=== PATIENT | female | born 1980 | race Two or more races ===

== ENCOUNTER 2017-08-03 08:42 | Inpatient (IN) | payer OTHER ==
[~2017-08-03] VITALS: Ht 154.9 cm; Wt 64.5 kg
--- NOTE | 2017-08-03 08:56 | NUR ---
PT C/O ABD PAIN THAT RADIATES TO HER BACK BILATERALLY 10/10 AT THIS TIME. PT CLAIMS S/S STARTED YESTERDAY WITH N/V NO DIARRHEA OR FEVER. SEEN AT [facility] YESTERDAY AND LEFT WITHOUT ALL RESULTS. PAIN IS EPIGASTRIC AND TENDER TO PALP WITHOUT ANY PALP MASSES PRESENT. PT ARRIVES ALERT AND ORIENTED WITH VSS AND 0 S/S DISTRESS NOTED. AWAITING MD DESIR
--- NOTE | 2017-08-03 09:32 | NUR ---
DR MAC AT BEDSIDE FOR EVAL
[2017-08-03 09:40] LABS: BASOPHIL % 0.7 % (0-2); PLATELET COUNT 261 x10^3mcL (130-400); RED CELL DISTRIBUTION WIDTH 13.1 % (11.5-14.5)
[2017-08-03 09:47] LABS: CALCIUM 8.8 mg/dL (8.5-10.1); CARBON DIOXIDE 26.7 mmol/L (21-32); CHLORIDE SERUM 102 mmol/L (98-107); CREATININE SERUM 0.7 mg/dL (0.6-1.0); GFR1 > 60 mL/min; GLUCOSE SERUM 95 mg/dL (74-106); POTASSIUM SERUM 3.5 mmol/L (3.5-5.1); SODIUM SERUM 136 mmol/L (136-145)
[2017-08-03 09:52] LABS: ALBUMIN 3.9 g/dL (3.4-5.0); ALKALINE PHOSPHATASE 56 U/L (46-116); ALT/SGPT 21 U/L (14-59); AST/SGOT 18 U/L (15-37); BILIRUBIN TOTAL 0.5 mg/dL (0.20-1.00); LIPASE 126 IU/L (73-393); TOTAL PROTEIN, SERUM 7.7 g/dL (6.4-8.2)
--- NOTE | 2017-08-03 11:30 | NUR ---
PT TO BE ADMITTED. AWAITING BED AND AWARE. VSS AND 0 S/S DISTRESS NOTED
[2017-08-03] MEDS ORDERED: PRILOSEC OTC20 M1 PO (11:45)
--- NOTE | 2017-08-03 12:45 | NUR ---
report given to bette cartwright rn
--- NOTE | 2017-08-03 12:52 | NUR ---
o.r. called and pt to go to OR
--- NOTE | 2017-08-03 12:59 | NUR ---
PT LEFT FOR OR AT THIS TIME. VSS AND ALERT AND ORIENTED
[2017-08-03 13:30] LABS: CHOLESTEROL/HDL RATIO 3.5; MAGNESIUM 2.3 mg/dL (1.8-2.4); PHOSPHOROUS 3.2 mg/dL (2.5-4.9)
[2017-08-03 13:32] LABS: T3 TOTAL 1.14 ng/mL
[2017-08-03 13:55] LABS: FREE T4 1.3 ng/dL (0.76-1.46); FREE THYROXINE INDEX 3.9 ug/dL (1.4-4.5); T4(THYROXINE) 11.1 ug/dL (4.7-13.3)
[2017-08-03 16:00] VITALS: BP 108/67
[2017-08-03 16:43] VITALS: BP 108/67
--- NOTE | 2017-08-03 16:46 | NUR ---
RECEIVED PT FROM ED VIA [facility]. ORIENTED PT TO ROOM AND SURROUNDINGS. IV NOTED TO RAC PATENT AND INTACT. TELE 28 PLACED ON PT READING NSR. INSTRUCTED PT ON THE USE OF CALL LIGHT FOR ASSISTANCE. ENDORSED PT TO PRIMARY NURSE WINNIE
--- NOTE | 2017-08-03 16:50 | NUR ---
RECEIVED PATIENT FROM OR S/P OF [facility]. A/A/OX3; TELE#28 = SR; HR= 74. BREATHING SOUND CLEAR. O2 SAT 100% ON RA. ABD FLAT/SOFT. BOWEL SOUND HYPOACTIVE. NO N/V. INCISION X4 TO ABD COVERED W/ BANDAIDS. DRSG D/I. C/O INCISIONAL PAIN ON 03/08; NORCO 7.5/325 PO GIVEN. IVF OF NS 80CC/HR INFUSING WELL; IV SITE TO RAC INTACT. NPO NOW PER ORDER. CALL LIGHT IN REACH. AT BED SIDE. POST URINATION IN PENDING.
--- NOTE | 2017-08-03 17:33 | NUR ---
VOID 350CC OF URINE VIA BRP.
[2017-08-03 18:04] LABS: UA SPECIFIC GRAVITY <=1.005 (1.005-1.035); microscopic required? YES; urine erythrocyte TRACE (NEGATIVE)
--- NOTE | 2017-08-03 18:10 | NUR ---
CONDITION STABLE. VOID VIA BRP. DENIED PAIN NOW. TOLERATED ORAL MEDS AND ICE CHIPS. ENDORSED CARE TO NOC NURSE.
[2017-08-03 18:19] LABS: AMPHETAMINE QUAL UR NONE DETECTED (NEG <=1000)
--- NOTE | 2017-08-03 19:20 | NUR ---
RECEIVED PT IN BED AWAKE, ALERT,ORIENTED X4. PT IS S/P LAP. ISABEL. ON RA AND W/ NO SOB NOTED. BOWEL SOUNDS HYPOACTIVE. SHE DENIES HAVING PAIN AT THIS TIME. NO C/O N/V. SX SITES TO ABDOMEN X4 W/ BAND-AID INTACT. W/ SCDS TO BLE. PER REPORT PT ALREADY VOIDED POST-OP. CALL LIGHT PLACED W/IN REACH.
--- NOTE | 2017-08-03 21:15 | NUR ---
PT WAS GIVEN APPLE JUICE AND SHE WAS ABLE TO TOLERATE IT. NO CO N/V.
[2017-08-03 21:47] VITALS: BP 98/66
--- NOTE | 2017-08-03 22:10 | NUR ---
PT C/O PAIN TO LOWER ABDOMEN 06/08. NORCO 7.5/325 MG PO GIVEN.
--- NOTE | 2017-08-03 23:10 | NUR ---
PT RESTING MORE COMFORTABLY AFTER TAKING NORCO. PT VERBALIZED PAIN IS DOWN TO 4/10.
--- NOTE | 2017-08-04 06:05 | NUR ---
PT ASSISTED TO THE RESTROOM. HELPED HER BACK TO BED AND KEPT COMFORTABLE.
--- NOTE | 2017-08-04 06:10 | NUR ---
PT SLEPT THROUGH THE NIGHT. SHE WAS MEDICATED FOR PAIN X1 . SHE IS TOLERATING CLEAR LIQUIDS. PT TO START ON FULL LIQUIDS AT BREAKFAST. PT STATED SHE IS BURPING BUT NO FLATUS YET. IVF NS AT 80 CC/HR INFUSING WELL VIA RTAC.
[2017-08-04 06:19] VITALS: BP 99/54
[2017-08-04 06:39] LABS: BASOPHIL % 0.2 % (0-2); PLATELET COUNT 197 x10^3mcL (130-400); RED CELL DISTRIBUTION WIDTH 13.3 % (11.5-14.5)
[2017-08-04 06:55] LABS: CALCIUM 8.1 mg/dL (8.5-10.1); CARBON DIOXIDE 27.1 mmol/L (21-32); CHLORIDE SERUM 106 mmol/L (98-107); CREATININE SERUM 0.6 mg/dL (0.6-1.0); GFR1 > 60 mL/min; GLUCOSE SERUM 87 mg/dL (74-106); MAGNESIUM 2.1 mg/dL (1.8-2.4); PHOSPHOROUS 3.9 mg/dL (2.5-4.9); POTASSIUM SERUM 4.2 mmol/L (3.5-5.1); SODIUM SERUM 138 mmol/L (136-145)
--- NOTE | 2017-08-04 07:56 | NUR ---
ALERT AND ORIENT x4. TELE #28, S1 AND S2 GUILLERMO ON AUSCULTATION. PULSES PRESENT AND EQUAL, NO EDEMA NOTED. LUNG SOUNDS CLEAR TO RA. BS ACTIVE, LBM 08/03/17, DENIES NAUSEA AND VOMMITING, REPORTS BURPING BUT NO FLATUS. REPORTS NO PROBLEM VOIDING. 4 BAINDAID TO ABD, S/P LAP ISABEL, SOME DRAINAGE NOTED, DRY AND INTACT, REPORTS PAIN 5/10, SORENESS TO ABD, WILL GIVE MEDICATION. NS @80 TO RAC WNL.
--- NOTE | 2017-08-04 08:44 | NUR ---
TOLERATED BREAKFAST WELL, DENIES NAUSEA. AT BEDSIDE
[2017-08-04 09:37] VITALS: BP 102/64
--- NOTE | 2017-08-04 10:45 | NUR ---
DR MADE AWARE OF CALCIUM, 8.1
--- NOTE | 2017-08-04 12:30 | NUR ---
REPORTS PAIN 4/10 AT THIS TIME AND IS TOLERABLE, NO DISTRESS NOTED. FAMILY AT BEDSIDE
[2017-08-04 13:09] VITALS: BP 98/60
--- NOTE | 2017-08-04 13:39 | NUR ---
AMB IN THE HALLWAY WITH , TOLERATED WELL. REPORTS PAIN IS GETTING BETTER AND IS 2/10.
[2017-08-04 16:30] VITALS: BP 103/58
--- NOTE | 2017-08-04 18:19 | NUR ---
PATIENT TOLERATED DINNER WELL, DENIES N/V. REPORTS NO PAIN AT THIS TIME. FAMILY AT BEDSIDE
--- NOTE | 2017-08-04 19:10 | NUR ---
PATIENT RECEIVED AWAKE, ALERT, AND ORIENTED X 4. NO DISTRESS NOTED. PATIENT DENIES ABD PAIN AT THIS TIME BUT STATES MILD SORENESS WHEN GETTING OUT OF BED. SURGICAL SITES CLEAN AND INTACT. IV SITE TO RIGHT AC, PATENT AND INTACT. IV FLUID INFUSING PER DOCTOR'S ORDER. BED IN LOWEST POSITION. CALL LIGHT WITHIN REACH. WILL CONTINUET TO MONITOR.
--- NOTE | 2017-08-04 19:19 | NUR ---
REPORT GIVEN TO PABLO YOUNG. PATIENT REPORTS SOME SORENESS IN ABD BUT TOLERABLE. FAMILY AT BED SIDE. NO DISTRESS NOTED
[2017-08-04 21:43] VITALS: BP 99/62
--- NOTE | 2017-08-04 22:30 | NUR ---
SEEN IN BED RESTING STS HAVING PAIN TO ABDOMINAL SURGICAL SITE 4/10 ON PAIN SCALE. ABD SOFT AND ROUND, SURGICAL WOUND WITH KITTY INTACT, DRY, DEEPTHI. DENIES NAUSEA. IVF NS TO RAC INFUSING WELL.
--- NOTE | 2017-08-04 22:39 | NUR ---
NORCO 1TAB PO GIVEN FOR SURGICAL SITE PAIN, WILL CONTINUE TO MONITOR.
[2017-08-05 05:26] VITALS: BP 100/60
--- NOTE | 2017-08-05 05:37 | NUR ---
AFEBRILE THROUGHOUT SHIFT. NORCO GIVEN X1 FOR SURGICAL SITE PAIN WITH GOOD RELIEF. DENIES NAUSEA. BRP.
--- NOTE | 2017-08-05 06:36 | NUR ---
ENCOURAGED PATIENT TO USE INCENTIVE SPIROMETER EVERY HOUR X10 WHEN AWAKE, PATIENT VERBALIZED UNDERSTANDING. PATIENT DEMONSTRATED HOW TO USE AT 1500 VOLUME NOTED. STS PAIN IS TOLERABLE AT THIS TIME.
[2017-08-05 06:46] LABS: BASOPHIL % 0.4 % (0-2); PLATELET COUNT 191 x10^3mcL (130-400); RED CELL DISTRIBUTION WIDTH 13.4 % (11.5-14.5)
[2017-08-05 07:00] LABS: CALCIUM 8.1 mg/dL (8.5-10.1); CARBON DIOXIDE 24.4 mmol/L (21-32); CHLORIDE SERUM 106 mmol/L (98-107); CREATININE SERUM 0.7 mg/dL (0.6-1.0); GFR1 > 60 mL/min; GLUCOSE SERUM 87 mg/dL (74-106); MAGNESIUM 1.8 mg/dL (1.8-2.4); PHOSPHOROUS 3.2 mg/dL (2.5-4.9); POTASSIUM SERUM 3.6 mmol/L (3.5-5.1); SODIUM SERUM 133 mmol/L (136-145)
--- NOTE | 2017-08-05 08:01 | NUR ---
PATIENT ALERT AND ORIENTED X4. TELE #28, NO DISTRESS NOTED. BREATHING EVEN AND UNLABORED, NO SOB NOTED. PULSES PRESENT AND EQUAL, NO EDEMA NOTED. ABD SOFT NONDISTENDED, DENIES ABD PAIN, BS ACTIVE. REPORTS NO PROBLEM VOIDING. IV RAC WNL, INFUSING NS @80. AMB STEADY. SKIN CLEAR AND DRY, 4 INCISIONS CLOSED WITH KITTY TO ABD, WELL APPROXIMATED, NO REDNESS NOTED. DENIES PAIN AT THIS TIME
[2017-08-05 09:21] VITALS: BP 110/66
[2017-08-05 10:02] VITALS: BP 110/66
--- NOTE | 2017-08-05 12:12 | NUR ---
RESTING WITH FAMILY AT BEDSIDE, NO DISTRESS NOTED, DENIES PAIN, OR N/V AT THIS TIME
[2017-08-05 12:40] VITALS: BP 112/71
[2017-08-05] MEDS ORDERED: MAC100 PO ×2 (14:20→14:31)
--- NOTE | 2017-08-05 15:50 | NUR ---
REVIEWED DISCHARGE INSTRUCTIONS WITH PATIENT, VERBALLY ACKNOWLEDGED UNDERSTANDING. IV D/C, CATHETER INTACT, TELE TAKEN OFF. PICTURE TAKEN OF ABDOMINAL INCISIONS AND PLACED IN CHART. BELONGINGS WITH PATIENT TAKEN DOWN TO LOBBY FOR DISCHARGE.
[2017-08-05] MEDS ORDERED: LAC PO (16:53)
== END 2017-08-05 15:50 | disposition home or self-care (01) | DRG 418 ==
LOC: ED 08:42 → DU 11:23
PROVIDERS: Emergency Medicine; Surgery; ADMIT Family Medicine Sports Medicine
PROC: 0FT44ZZ Resection of Gallbladder, Percutaneous Endoscopic Approach (ICD-10-PCS; principal; 2017-08-03 13:00)
DX: K80.60 Calculus of gallbladder and bile duct with cholecystitis, unspecified, without obstruction (principal); K82.1 Hydrops of gallbladder; N39.0 Urinary tract infection, site not specified; E87.1 Hypo-osmolality and hyponatremia; E78.5 Hyperlipidemia, unspecified; K21.9 Gastro-esophageal reflux disease without esophagitis; D64.9 Anemia, unspecified; E83.51 Hypocalcemia
CPT/HCPCS: 83880; 84439; J0330; J0690; J1885; J1956; J2175; J2250; J2405; J2543; J2704; J2710; J3010; J3490; J7030; J7120; Q0162